=== PATIENT | male | born 1945 | race Caucasian/White ===

== ENCOUNTER 2020-01-12 09:56 | Outpatient (CLI) | payer MEDICARE, SELFPAY ==
--- NOTE | 2020-01-12 10:12 | CT_ITS ---
WS: [id number] CT ABDOMEN AND PELVIS NONCONTRAST HISTORY: ACUTE FLANK PAIN TECHNIQUE: Imaging performed through the abdomen and pelvis. Coronal and sagittal reformats are submi tted. All CT scans at [facility] use at least one of these dose optimization techniques: automated exposure control; mA and/or kV adjustment per patient size (includes targeted exams where d ose is matched to clinical indication); or iterative reconstruction. DLP: 1170.73 mGycm COMPARISON: 08/23/2018 Lower thorax: Small hiatal hernia. Otherwise negative. Liver: Normal size liver. No mass or bile duct dilatation. Gallbladder: Normal gallbladder. Pancreas: Normal size and attenuation. Normal pancreatic duct. No pancreatitis or mass. Spleen: Normal. Adrenal glands: Normal. No mass. Right kidney: Normal size kidney with mild perinephric stranding. Nonobstructing 5 mm calcification l ower pole. No ureteral obstruction. Left kidney: Mild perinephric stranding. Normal size kidney with no obstruction. Aorta: Mild atherosclerosis abdominal aorta with no aneurysm. No free fluid, intraperitoneal air or significant lymphadenopathy. GI tract: Normal appendix. Extensive diverticular disease with no evidence for acute diverticulitis. No obstruction. Abdominal wall: Small umbilical hernia contains fat only. Pelvis: Well-distended urinary bladder. There are several bladder stones layering in the posterior de pendent portion of the bladder which were previously described. Prostate gland is also enlarged encro aching into the posterior bladder. Prostate measures 4.3 x 5.3 cm. Small inguinal lymph nodes. Osseous structures: Moderate degenerative disc disease throughout the lumbar spine with sclerosis. CT/CT kidney stone [id number] IMPRESSION: 1. No renal obstruction. 2. Nonobstructing 5 mm calcification lower pole RIGHT kidney. 3. Numerous bladder calcifications.
== END 2020-01-12 09:57 | disposition home or self-care (01) ==
LOC: RADWPI 10:06
PROVIDERS: Family Provider Internal Medicine; PCP Internal Medicine; Visit Provider Nurse Practitioner Family
DX: R10.9 Unspecified abdominal pain (principal); N20.0 Calculus of kidney; N32.89 Other specified disorders of bladder
CPT/HCPCS: 74176

== ENCOUNTER → 2020-08-17 16:16 | Outpatient (BNVA) | payer MEDICARE, SELFPAY | PROVIDERS: Family Provider Internal Medicine; PCP Internal Medicine; Visit Provider Nurse Practitioner Family | DX: Z87.440 Personal history of urinary (tract) infections (principal); R30.0 Dysuria; N40.1 Benign prostatic hyperplasia with lower urinary tract symptoms; N13.8 Other obstructive and reflux uropathy | CPT/HCPCS: 81003; 87086 ==

== ENCOUNTER 2020-09-01 07:46 | Outpatient (CLI) | payer MEDICARE, SELFPAY ==
--- NOTE | 2020-09-01 08:30 | XR_ITS ---
WS: [id number] KUB, AP view, 09/01/2020 Clinical Data: N20.0 - Calculus of kidney Comparison: KUB, 09/04/2018. Findings: No abnormal intraabdominal masses or calcifications are seen. There is no dilatated small bowel or ev idence of obstruction. There are calcifications on the right side of the true pelvis which could be in the bladder but are p robably within the sigmoid colon. There is a large amount of fecal material throughout the colon obsc uring detail over the kidneys. XR/XR KUB [id number] Impression: 1. Negative for definite renal calcifications. 2. Calcifications in the true pelvis which could be in the bladder.
== END 2020-09-01 07:47 | disposition home or self-care (01) ==
LOC: RAD 07:51
PROVIDERS: PCP Internal Medicine; Visit Provider Urology
DX: N20.0 Calculus of kidney (principal)
CPT/HCPCS: 74018; 81003; 87635

== ENCOUNTER 2020-09-04 11:47 | Day surgery (SDC) | payer MEDICARE, SELFPAY ==
[2020-09-01 13:26] VITALS: BMI 39.5
[2020-09-04 12:47] VITALS: BP 148/99; PULSE 80; RESP 18; TEMP 36.9; O2SAT 97
[2020-09-04] MEDS: sodium chloride 0.9% 1,000 ML 30 ML IV (12:58)
[2020-09-04 13:03] LABS: Glucose Point of Care 98 mg/dL (70-110)
[2020-09-04] MEDS: levofloxacin-dextrose 5 % 500 MG/100 ML PREMIX 100 MG IV (13:15)
--- NOTE | 2020-09-04 13:15 | ANES.PREANE2 ---
Pre-Anesthetic Assessment Pre-Anesthetic Assessment: Height/Weight: Height 1.73 m Weight 117.934 kg Temp Pulse Resp BP Pulse Ox 98.5 F 80 18 148/99 97 09/04/20 12:47 09/04/20 12:47 09/04/20 12:47 09/04/20 12:47 09/04/20 12:47 Preop Diagnosis: bladder stones Proposed Procedure: Operation Date: 09/04/20 13:20 Proposed Procedures p Cystoscopy [id number] 73994 N21.0(Not Applicable) - Chris Briseno MD s ESWL(Not Applicable) - Chris Briseno MD Was Beta Emily taken within 24 hours: N/A Was Clonidine taken within 24 hours: N/A Last intake: Intake Last Liquid Date 09/04/20 Last Liquid Time 07:00 Last Solid Date 09/02/20 Last Solid Time 19:00 Social: Social History: No alcohol and No tobacco Exam: Pre-Anes Outpt Exam: alert, oriented x 3, clear to auscultation bilaterally and regular rate & rhythm Airway: Submandibular: WNL Cervical ROM: WNL MP: 3 Dentition: Full CV/HEM: CV/HEM: HTN Metabolic: Metabolic: DM and Morbid obesity Anesthetic Plan: ASA status: 3 Anesthesia: General Risk of > 500 ml blood loss (7ml/kg in children): No Meds/Allergies Current Medications: Current Medications Generic Name Dose Route Start Last Admin Trade Name Freq PRN Reason Stop Dose Admin Sodium Chloride 1,000 mls @ 30 ml s/hr 09/04/20 12:00 09/04/20 12:58 Sodium Chloride 0.9% IV 09/05/20 11:59 30 mls/hr .Q24H IRENE Administration PFSH Anesthesia PFSH: Medical History Acute prostatitis Acute pyelonephritis Bladder calculus BPH loc w urin obs/LUTS Prostatitis Renal calculus Surgical History History of back surgery Hx of resection of rectum Family History Family/Other Diabetes Cancer Stroke Social History Smoking and tobacco status: never smoked Alcohol intake: never Marital status: Current occupational status: retired History of recent travel: No Data Anesthesia Other Labs: Laboratory Results - last 48 hr 09/04/20 12:50 POC Glucose 98 Cardiac Studies: No Data to Display
--- NOTE | 2020-09-04 14:06 | P.HPUD_ITS ---
Surgery/Procedure H&P Update DATE OF PROCEDURE: September 04, 2020 DATE H&P PERFORMED: 09/01/20 H&P UPDATE INFORMATION: I have reviewed H&P completed within last 30 days, I have examined patient prior to procedure, No changes to prior documentation and H&P is in [facility] EMR on date indicated CHANGES TO PREVIOUS DOCUMENTATION: Delayed entry for this note but he was seen and evaluated and all the above information is pertinent. Reviewed the proced ure with his who is not in the clinic. All questions answered. PREOP DIAGNOSIS: bladder stones PLANNED PROCEDURE: Operation Date: 09/04/20 13:20 Proposed Procedures p Cystoscopy [id number] N21.0(Not Applicable) - Chirs Briseno MD s ESWL(Not Applicable) - Chris Briseno MD
--- NOTE | 2020-09-04 14:08 | P.OP_ITS ---
Operative Report Date of procedure: September 04, 2020 Pre-op Diagnosis: bladder stones Post-op diagnosis: same Procedure Done: 1. Extracorporeal shockwave lithotripsy bladder stones 2. Cystoscopy with evacuation of bladder stone fragments. Specimens removed/disposition: Bladder stone fragments Pathology: other (Bladder stone fragments) Surgeon: Suzanna Anesthesia: General Estimated blood loss: Minimal Urine output: Not measured Complications: None Findings: Stones fragmented very well. Completely remove the bladder with an Ellik evacuated via cystoscopy. Only required 750 shocks to fragment. Condition: stable Disposition: PACU Brief History: Mr. Mattson is a very pleasant 74-year-old white male with a history of BPH/obstruction and recurrent cystolithiasis with urinary tract infections. Because of the recurrent UTIs imaging was performed and showed 2 bladder stones. Confirmed on cystoscopy as well. Admitted for ESWL and cystoscopy fragment removal. Procedure: After routine preoperative evaluation examination and obtaining of informed consent he was taken to the operating suite on 09/04/2020 where general anesthesia was administered without difficulty after appropriate timeout was performed, SCDs confirmed to be functioning, preoperative antibiotics administered, beta-nadeem protocol confirmed. Positioned on the Dornier unit in supine position. With the shock head positioned anteriorly over the bladder the stones were located. They were easily focused upon. Shockwave therapy was initiated at 1 intensity and advanced to 4. Rate was initiated at 70 and after good change was noted advanced to 90. Excellent change was noted in by 750 shocks both stones were well fragmented. Shockwave therapy portion was completed. He was then positioned in dorsal lithotomy position paying careful attention to avoiding pressure points. Prepped and draped in usual sterile fashion. 23 [place] Citizen cystoscope with 30 degree lens was introduced into the urethra meatus and advanced into the bladder under videoscopy. Stone fragments were easily identified and well fragmented. They were cleared from the bladder with an Ellik evacuator. Final inspection showed no residual stones or fragments. Bladder mucosa was healthy without trauma. He tolerated procedure well without complications and was awakened in the operating room and returned to recovery in stable condition. PLANS: 1. Follow-up in about 6 months with a KUB. 2. Call for any concerns or questions.
[2020-09-04 14:15] VITALS: BP 180/95; PULSE 74; RESP 12; TEMP 36.1; O2SAT 94
[2020-09-04 14:20] VITALS: BP 164/105; PULSE 70; RESP 20; O2SAT 93
--- NOTE | 2020-09-04 14:23 | P.PCN_ITS ---
PACU note PACU note: VSS, Good respiratory effort, report to CLIENT SERVICE PROFESSIONAL Post-Anesthesia Exam: awake
--- NOTE | 2020-09-04 14:23 | PM.PACU ---
PACU note PACU note: VSS, Good respiratory effort, report to TELEVISION CABLE INSTALLER Post-Anesthesia Exam: awake
[2020-09-04 14:25] VITALS: BP 142/97; PULSE 69; RESP 17; O2SAT 94
[2020-09-04 14:30] VITALS: BP 158/95; PULSE 70; RESP 19; O2SAT 95
[2020-09-04 14:40] VITALS: BP 158/96; PULSE 67; RESP 18; TEMP 36.3; O2SAT 95
--- NOTE | 2020-09-04 15:40 | ANE.PACU2 ---
Inpatient post-anesthesia follow up: Airway intact: Yes Vital signs: Temperature 97.4 F Pulse Rate 67 Respiratory Rate 18 Blood Pressure 158/96 Pulse Oximetry 95 Oxygen Delivery Me thod Room Air Oxygen Flow Rate Fraction of Inspir ed Oxygen Hydration adequate: Yes Nausea and vomiting: No Pain level: 2 Mental status: Baseline
[2020-09-04] MEDS: cetylpyridinium Lozenge 1 EACH MUCOUS MEM (15:46)
[2020-09-09 01:18] LABS: Stone Source BLADDER STONE
== END 2020-09-04 16:05 | disposition home or self-care (01) ==
PROVIDERS: PCP Internal Medicine; Visit Provider Urology
PROC: 0TJB8ZZ Inspection of Bladder, Via Natural or Artificial Opening Endoscopic (ICD-10-PCS; CPT 52000; principal; 2020-09-04 13:10)
PROC: (CPT 50590; 2020-09-04 13:10)
DX: N21.0 Calculus in bladder (principal); I10 Essential (primary) hypertension; E11.9 Type 2 diabetes mellitus without complications; E66.01 Morbid (severe) obesity due to excess calories; Z68.39 Body mass index [BMI] 39.0-39.9, adult; N40.1 Benign prostatic hyperplasia with lower urinary tract symptoms; N13.8 Other obstructive and reflux uropathy
CPT/HCPCS: 50590; 36416; 82365; 82962; 88300; J1956; J2370; J2405; J2704; J2710; J3010; J3490; J7030

== ENCOUNTER 2021-03-05 09:28 | Outpatient (CLI) | payer MEDICARE, SELFPAY ==
--- NOTE | 2021-03-05 09:00 | XR_ITS ---
WS: [id number] KUB, AP view, 03/05/2021. Clinical Data: BLADDER CALCULUS Comparison: KUB, 09/01/2020. Findings: No abnormal intraabdominal masses or calcifications are seen. There is no dilatated small bowel or ev idence of obstruction. There is a large amount of fecal material throughout the colon obscuring detail over both kidneys. Th e calcifications on the right side of the true pelvis are obscured by fecal material, but they may be present. XR/XR KUB [id number] Impression: Calcifications overlying the bladder in the true pelvis may still be present bu t they are obscured by fecal material.
== END 2021-03-05 09:29 | disposition home or self-care (01) ==
LOC: RAD 09:31
PROVIDERS: PCP Internal Medicine; Visit Provider Urology
DX: N21.0 Calculus in bladder (principal); N40.1 Benign prostatic hyperplasia with lower urinary tract symptoms
CPT/HCPCS: 74018; 81003

== ENCOUNTER 2022-03-24 08:15 | Emergency (ER) | payer MEDICARE, SELFPAY ==
[2022-03-24 08:24] VITALS: BP 189/122; PULSE 84; RESP 20; TEMP 36.9; O2SAT 98; BMI 39.5
--- NOTE | 2022-03-24 08:26 | XRR_ITS ---
PROCEDURE INFORMATION: Exam: XR Chest Exam date and time: 03/24/2022 9:46 AM Age: 76 years old Clinical indication: Cough TECHNIQUE: Imaging protocol: Radiologic exam of the chest. Views: 2 views. COMPARISON: CR XR KUB [id number] 03/21/2022 11:42 AM FINDINGS: Lungs: Left lower lobe interstitial congestion No consolidation. Pleural spaces: Unremarkable. No pleural effusion. No pneumothorax. Heart/Mediastinum: Unremarkable. No cardiomegaly. Bones/joints: Unremarkable. XR/XR chest 2V* [id number] IMPRESSION: 1. No acute findings. 2. Left lower lobe interstitial congestion
[2022-03-24 08:29] VITALS: BP 166/102; PULSE 80; O2SAT 97
[2022-03-24] MEDS: benzonatate 100 mg Capsule 200 MG PO (08:39)
--- NOTE | 2022-03-24 08:42 | W.ED.URI ---
HPI - URI/Sore Throat General: Chief Complaint: Shortness of Breath/Dyspnea Stated Complaint: Cough, fever Time Seen by Provider: 03/24/22 08:24 History of Present Illness: 76-year-old male presents with cough with pain with inspiration and with his cough. He feels like his lungs are going be ripped out of his chest patient reports that started yesterday. Patient denies any fever, chills, nausea or vomiting. Patient has mild shortness of breath when he is coughing otherwise no significant plaints of shortness of breath. Associated symptoms: Deny abdominal pain, chills, chest pain, ear or mastoid pain, fever(s), headache(s), nausea or vomiting Review of Systems Const: Reports: fatigue; Denies: fever(s) or chills Eyes: Denies: change in vision or blurry vision ENMT: Denies: throat pain or ear or mastoid pain Card: Denies: chest pain or palpitations Resp: Reports: non-productive cough; Denies: wheezing GI: Denies: abdominal pain, nausea or vomiting : Denies: flank pain or difficulty urinating Musc: Denies: neck pain or back pain Skin/Breast: Denies: rash or erythema Neuro: Denies: headache(s) or dizziness Psych: Denies: anxiety or depression PFSH ED PFSH: Medical History Acute prostatitis Acute pyelonephritis Bladder calculus BPH loc w urin obs/LUTS Prostatitis Renal calculus Surgical History History of back surgery Hx of resection of rectum Family History Family/Other Diabetes Cancer Stroke Father , at age 74 Stroke Social History Smoking and tobacco status: never smoked Alcohol intake: never Marital status: Current occupational status: retired History of recent travel: No Course Vital Signs: Vital signs: Vital Signs Temperature 98.4 F 03/24/22 08:24 Pulse Rate 74 03/24/22 11:29 Respiratory Rate 20 H 03/24/22 08:24 Blood Pressure 141/92 03/24/22 11:29 Pulse Oximetry 95 03/24/22 11:29 Oxygen Delivery Me thod 03/24/22 08:24 MDM - URI/Sore Throat Medical Decision Making Patient's positive for influenza A. Since his symptoms just started and he has multiple medical comorbidities we will start him on Tamiflu. Along with some Zofran and Tessalon Perles. Patient is stable and discharged home Lab Data : 03/24/22 09:05 03/24/22 09:05 Radiology Impressions Chest X-Ray 03/24/22 08:26 IMPRESSION: 1. No acute findings. 2. Left lower lobe interstitial congestion Laboratory Results WBC 5.7 10^3/uL (4.0-10.0) 03/24/22 09:05 RBC 4.45 10^6/uL (4.1-5.3) 03/24/22 09:05 Hgb 13.6 g/dL (11.7-16.6) 03/24/22 09:05 Hct 41.6 % (42.0-52.0) L 03/24/22 09:05 MCV 93.5 fl (80-94) 03/24/22 09:05 MCH 30.6 pg (28.0-34.0) 03/24/22 09:05 MCHC 32.7 g/dL (30.0-36.0) 03/24/22 09:05 RDW 13.8 % (12.1-15.1) 03/24/22 09:05 Plt Count 235 10^3/cmm (130-400) 03/24/22 09:05 MPV 9.5 fL (7.4-10.4) 03/24/22 09:05 Neut % (Auto) 57.4 % 03/24/22 09:05 Lymph % (Auto) 14.3 % 03/24/22 09:05 [place] % (Auto) 17.4 % 03/24/22 09:05 Eos % (Auto) 9.8 % 03/24/22 09:05 Baso % (Auto) 0.9 % 03/24/22 09:05 Neut # (Auto) 3.30 10^3/uL (1.8-7.7) 03/24/22 09:05 Lymph # (Auto) 0.8 10^3/uL (0.8-4.8) 03/24/22 09:05 [place] # (Auto) 1.0 10^3/uL (0.2-0.9) H 03/24/22 09:05 Eos # (Auto) 0.6 10^3/uL (0.0-0.8) 03/24/22 09:05 Baso # (Auto) 0.1 10^3/uL (0.0-0.1) 03/24/22 09:05 Nucleated RBC % (auto) 0 % 03/24/22 09:05 Nucleated RBCs # 0.0 /100WBC 03/24/22 09:05 Sodium 135 mmol/L (136-145) L 03/24/22 09:05 Potassium 4.0 mmol/L (3.5-5.1) 03/24/22 09:05 Chloride 98 mmol/L (98-107) 03/24/22 09:05 Carbon Dioxide 27 mmol/L (22-29) 03/24/22 09:05 Anion Gap 14.0 (5-19) 03/24/22 09:05 BUN 12 mg/dL (8-23) 03/24/22 09:05 Creatinine 0.9 mg/dL (0.7-1.2) 03/24/22 09:05 GFR Calculation Not Reportable 03/24/22 09:05 Glucose 139 mg/dL (65-115) H 03/24/22 09:05 Calculated Osmolality 282 mOsm/kg (285-295) L 03/24/22 09:05 Calcium 9.3 mg/dL (8.5-10.5) 03/24/22 09:05 Total Bilirubin 0.2 mg/dL (0.15-1.2) 03/24/22 09:05 AST 28 U/L (0-40) 03/24/22 09:05 ALT 33 U/L (0-41) 03/24/22 09:05 Alkaline Phosphatase 113 U/L (40-130) 03/24/22 09:05 C-Reactive Protein 47.5 mg/L (0.0-4.9) H 03/24/22 09:05 Total Protein 6.8 g/dL (6.6-8.7) 03/24/22 09:05 Albumin 3.7 g/dL (3.5-5.2) 03/24/22 09:05 Globulin 3.1 g/dL (1.3-4.6) 03/24/22 09:05 Nasal Influ A H1 2009 PCR Detected (NOT DETECT) A 03/24/22 08:42 Adenovirus (PCR) Not detected (NOT DETECT) 03/24/22 08:42 C. pneumoniae DNA (PCR) Not detected (NOT DETECT) 03/24/22 08:42 Coronavirus 229E (PCR) Not detected (NOT DETECT) 03/24/22 08:42 Human Metapneumovir PCR Not detected (NOT DETECT) 03/24/22 08:42 Influenza A (H1) PCR Not detected (NOT DETECT) 03/24/22 08:42 Influenza A (H3) PCR Not detected (NOT DETECT) 03/24/22 08:42 Influenza Type A (PCR) Detected (NOT DETECT) A 03/24/22 08:42 Influenza Type B (PCR) Not detected (NOT DETECT) 03/24/22 08:42 M. pneumoniae (PCR) Not detected (NOT DETECT) 03/24/22 08:42 Parainfluenza 1 (PCR) Not detected (NOT DETECT) 03/24/22 08:42 Parainfluenza 2 (PCR) Not detected (NOT DETECT) 03/24/22 08:42 Parainfluenza 3 (PCR) Not detected (NOT DETECT) 03/24/22 08:42 Parainfluenza 4 (PCR) Not detected (NOT DETECT) 03/24/22 08:42 RSV Type A (PCR) Not detected (NOT DETECT) 03/24/22 08:42 RSV Type B (PCR) Not detected (NOT DETECT) 03/24/22 08:42 Entero/Rhino (PCR) Not detected (NOT DETECT) 03/24/22 08:42 SARS-CoV-2 (PCR) Not detected (NOT DETECT) 03/24/22 08:42 Discharge Plan Discharge Patient Disposition: Home Clinical Impression: Influenza A Condition: Stable Prescriptions: New Tamiflu 75 mg capsule 75 mg PO BID 5 Days Qty: 10 0RF benzonatate 100 mg capsule 100 mg PO TID PRN (Reason: cough) Qty: 14 0RF ondansetron 4 mg tablet,disintegrating 4 mg PO Q8H PRN (Reason: nausea and vomiting) Qty: 20 0RF No Action hydrochlorothiazide 12.5 mg capsule 12.5 mg PO DAILY metformin 500 mg tablet 500 mg PO BID amlodipine 5 mg tablet 5 mg PO DAILY lovastatin 20 mg tablet 20 mg PO DAILY Lantus Solostar U-100 Insulin 100 unit/mL (3 mL) insulin pen 20 unit SUBCUT QAM fluticasone propionate [Allergy Relief (fluticasone)] 50 mcg/actuation spray,suspension 1 spray intranasal DAILY PRN (Reason: Allergy Symptoms) Rx Instructions: administer into each nostril lisinopril 40 mg tablet 40 mg PO DAILY atenolol 100 mg tablet 100 mg PO DAILY tamsulosin 0.4 mg capsule 0.4 mg PO BID Qty: 60 12RF mupirocin 2 % ointment 1 applic topical BID Qty: 22 0RF valacyclovir 1 gram tablet 1,000 mg PO Q8H Qty: 21 0RF Discharge Orders: Discharge ED (Routine); Ordered 03/24/22 Ordered By: Nikolay Daly Referrals: Jhoan Merlos DO [Primary Care Provider] - Discharge Diet: Usual diet Discharge Activity: Resume usual activity Patient Instructions: Influenza (ED), Opioid Safety, Pain Management Activity Restrictions/Additional Instructions: Follow-up with your primary care provider in 2 to 3 days for recheck your symptoms, return to the ER as needed Coding Level of Care Code ED Sales Merchandise Associate for Darline Newman
[2022-03-24 09:12] LABS: Basophils # 0.1 10^3/uL (0.0-0.1); Basophils % 0.9 %; Eosinophils # 0.6 10^3/uL (0.0-0.8); Eosinophils % 9.8 %; Hematocrit 41.6 % (42.0-52.0); Hemoglobin 13.6 g/dL (11.7-16.6); Lymphocytes # 0.8 10^3/uL (0.8-4.8); Lymphocytes % 14.3 %; Mean Corpuscular HGB Conc 32.7 g/dL (30.0-36.0); Mean Corpuscular Hemoglobin 30.6 pg (28.0-34.0); Mean Corpuscular Volume 93.5 fl (80-94); Mean Platelet Volume 9.5 fL (7.4-10.4); Monocytes % 17.4 %; Neutrophils % 57.4 %; Nucleated Red Blood Cells % 0 %; Platelet Count 235 10^3/cmm (130-400); Red Blood Count 4.45 10^6/uL (4.1-5.3); Red Cell Distribution Width 13.8 % (12.1-15.1); White Blood Count 5.7 10^3/uL (4.0-10.0)
[2022-03-24 09:29] LABS: Alanine Aminotransferase 33 U/L (0-41); Albumin Level 3.7 g/dL (3.5-5.2); Alkaline Phosphatase 113 U/L (40-130); Aspartate Amino Transferase 28 U/L (0-40); Blood Urea Nitrogen 12 mg/dL (8-23); C Reactive Protein 47.5 mg/L (0.0-4.9); Calcium 9.3 mg/dL (8.5-10.5); Carbon Dioxide 27 mmol/L (22-29); Chloride 98 mmol/L (98-107); Globulin 3.1 g/dL (1.3-4.6); Glucose 139 mg/dL (65-115); Osmolality Calculated 282 mOsm/kg (285-295); Sodium 135 mmol/L (136-145); Total Bilirubin 0.2 mg/dL (0.15-1.2); Total Protein 6.8 g/dL (6.6-8.7)
[2022-03-24 10:29] VITALS: BP 153/87; PULSE 78; O2SAT 95
[2022-03-24 10:49] LABS: Adenovirus Not Detected (NOT DETECT); Chlamydia Pneumoniae Not Detected (NOT DETECT); Coronavirus 229E,HKU1,NL63,OC4 Not Detected (NOT DETECT); Human Metapneumovirus Not Detected (NOT DETECT); Human Rhinovirus/Enterovirus Not Detected (NOT DETECT); Influenza A Detected (NOT DETECT); Influenza A H1 Not Detected (NOT DETECT); Influenza A H1-2009 Detected (NOT DETECT); Influenza A H3 Not Detected (NOT DETECT); Influenza B Not Detected (NOT DETECT); Mycoplasma Pneumoniae Not Detected (NOT DETECT); Parainfluenza Virus Type 1 Not Detected (NOT DETECT); Parainfluenza Virus Type 2 Not Detected (NOT DETECT); Parainfluenza Virus Type 3 Not Detected (NOT DETECT); Parainfluenza Virus Type 4 Not Detected (NOT DETECT); Respiratory Syncytial Virus A Not Detected (NOT DETECT); Respiratory Syncytial Virus B Not Detected (NOT DETECT); SARS-COV-2 Not Detected (NOT DETECT)
[2022-03-24 11:29] VITALS: BP 141/92; PULSE 74; O2SAT 95
== END 2022-03-24 11:30 | disposition home or self-care (01) ==
PROVIDERS: Emergency Provider Student in an Organized Health Care Education/Training Program; PCP Internal Medicine
DX: J10.1 Influenza due to other identified influenza virus with other respiratory manifestations (principal); Z79.4 Long term (current) use of insulin
CPT/HCPCS: 71046; 80053; 85025; 86140; 87486; 87581; 87633; 99284

== ENCOUNTER 2023-08-14 11:02 | Outpatient (RCR) | payer MEDICARE, SELFPAY | END 2023-08-17 23:59 | disposition home or self-care (01) | LOC: SPT 11:02 | PROVIDERS: PCP Internal Medicine; Visit Provider Orthopaedic Surgery | DX: Z47.1 Aftercare following joint replacement surgery (principal); Z96.641 Presence of right artificial hip joint | CPT/HCPCS: 97110; 97161 ==

== ENCOUNTER 2023-08-18 06:00 | Outpatient (RCR) | payer MEDICARE, SELFPAY | END 2023-09-16 23:59 | disposition home or self-care (01) | LOC: SPT 06:00 | PROVIDERS: PCP Internal Medicine; Visit Provider Orthopaedic Surgery | DX: Z47.1 Aftercare following joint replacement surgery (principal); Z96.641 Presence of right artificial hip joint | CPT/HCPCS: 97110 ==

== ENCOUNTER 2023-09-17 06:00 | Outpatient (RCR) | payer MEDICARE, SELFPAY | END 2023-10-17 23:59 | disposition home or self-care (01) | LOC: SPT 06:00 | PROVIDERS: PCP Internal Medicine; Visit Provider Orthopaedic Surgery | DX: Z47.1 Aftercare following joint replacement surgery (principal); Z96.641 Presence of right artificial hip joint | CPT/HCPCS: 97110 ==

== ENCOUNTER → 2025-01-06 10:38 | Outpatient (BNVA) | payer MEDICARE, SELFPAY | PROVIDERS: PCP Internal Medicine; Visit Provider Dermatology | DX: L24.9 Irritant contact dermatitis, unspecified cause (principal); L29.89 Other pruritus; L30.4 Erythema intertrigo; D22.39 Melanocytic nevi of other parts of face; L82.1 Other seborrheic keratosis; Z08 Encounter for follow-up examination after completed treatment for malignant neoplasm; Z85.828 Personal history of other malignant neoplasm of skin; D48.5 Neoplasm of uncertain behavior of skin; L91.8 Other hypertrophic disorders of the skin | CPT/HCPCS: 11102; 11200; 99204 ==